=== PATIENT | male | born 1985 | race Asian ===

== ENCOUNTER 2023-07-31 01:39 | Emergency (ER) | payer BC ==
[~2023-07-31] VITALS: Ht 175.3 cm; Wt 72.6 kg
[2023-07-31 01:42] VITALS: BP_SYST 151; PULSE 72; RESP 20; TEMP 97.9; O2SAT 100
[2023-07-31] MEDS: MAG HYDROX/AL HYDROX/SIMETH 30 ML, DICYCLOMINE HCL 20 MG, LIDOCAINE VISCOUS 2% 15ML (PO... PO ONE (02:14)
[2023-07-31] MEDS: ONDANSETRON HCL 4 MG/2 ML VIAL IVP ONE (02:53)
[2023-07-31] MEDS: FAMOTIDINE PF 20 MG/2 ML VIAL IVP ONE (02:54)
[2023-07-31] MEDS: NACL 0.9% 1,000 ML IV ONE (02:55)
[2023-07-31 03:26] LABS: BASOPHILS % (AUTO) 0.5 % (0.0-2.0); EOSINOPHILS # (AUTO) 0.1 K/uL (0.0-0.4); EOSINOPHILS % (AUTO) 1.9 % (0.0-4.0); HEMATOCRIT 44.1 % (36-54); HEMOGLOBIN 15.1 g/dL (14.0-18.0); LYMPHOCYTES # (AUTO) 1.5 K/uL (1.0-5.5); LYMPHOCYTES % (AUTO) 23.4 % (20.5-51.5); MEAN CORPUSCULAR HEMOGLOBIN 31 pg (27-31); MEAN CORPUSCULAR HGB CONC 34 % (32-36); MEAN CORPUSCULAR VOLUME 89 fL (79.0-98.0); MONOCYTES # (AUTO) 0.4 K/uL (0.0-1.0); MONOCYTES % (AUTO) 5.8 % (1.7-9.3); NEUTROPHILS # (AUTO) 4.3 K/uL (1.8-7.7); NEUTROPHILS % (AUTO) 68.4 % (40.0-70.0); PLATELET COUNT (AUTO) 325 K/uL (130-430); RED BLOOD CELL COUNT(AUTO) 4.95 MIL/uL (4.2-6.2); RED CELL DISTRIBUTION WIDTH 12.9 % (9.0-15.0); WHITE BLOOD COUNT (AUTO) 6.3 K/uL (4.8-10.8)
[2023-07-31 03:38] LABS: CREATININE 1.08 mg/dL (0.55-1.30); POTASSIUM 3.6 mmol/L (3.5-5.1)
[2023-07-31 03:42] LABS: ALBUMIN 4.2 g/dL (3.4-4.8); TOTAL BILIRUBIN 0.6 mg/dL (0.0-1.0); TOTAL PROTEIN, SERUM 7.8 g/dL (6.4-8.3)
[2023-07-31] MEDS ORDERED: SUCR1TAB2 PO (05:49)
[2023-07-31] MEDS ORDERED: PRO40 PO (05:49)
[2023-07-31] MEDS ORDERED: ANT30 PO (05:50)
[2023-07-31 06:16] VITALS: BP_SYST 134; PULSE 57; RESP 16; TEMP 98.4; O2SAT 97
== END 2023-07-31 06:16 | disposition home or self-care (01) ==
LOC: SED 01:39
DX: K29.70 Gastritis, unspecified, without bleeding (principal); R10.13 Epigastric pain; R06.02 Shortness of breath; R11.0 Nausea; Z79.899 Other long term (current) drug therapy
CPT/HCPCS: 99285; 96374; 71046; 96375; 80053; 83690; 85025; 84484; 36415; 93005; J3490; J2405; J2001